=== PATIENT | male | born 1955 | race Caucasian/White ===

== ENCOUNTER → 2017-01-07 | Outpatient (CLI) | payer BC | END | disposition home or self-care (01) | LOC: RAD 08:27 | PROVIDERS: ATTEND Internal Medicine Critical Care Medicine | DX: R05 Cough (principal) | CPT/HCPCS: 71020 ==

== ENCOUNTER → 2018-05-08 | Outpatient (CLI) | payer BC ==
[2018-05-08 08:40] LABS: T4 FREE 0.97 ng/dL (0.76-1.46)
[2018-05-09 09:08] LABS: PROGESTERONE 0.2 ng/mL (0.0-0.5)
[2018-05-12 04:12] LABS: ESTROGENS TOTAL 83 pg/mL (40-115); THYROXINE BINDING GLOBULIN 25 ug/mL (13-39)
== END | disposition home or self-care (01) ==
LOC: LAB 06:17
PROVIDERS: ATTEND Internal Medicine Critical Care Medicine
DX: Z00.01 Encounter for general adult medical examination with abnormal findings (principal); K21.9 Gastro-esophageal reflux disease without esophagitis
CPT/HCPCS: 36415; 80048; 82672; 84144; 84403; 84439; 84442; 84443

== ENCOUNTER → 2018-10-01 | Outpatient (CLI) | payer BC ==
[2018-10-02 10:11] LABS: HIV SCREEN 4G Non Reactive (Non Reactive)
[2018-10-03 04:11] LABS: CHLAMYDIA TRACHOMATIS NAA Negative (Negative); NEISSERIA GONORRHOEAE NAA Negative (Negative)
== END | disposition home or self-care (01) ==
LOC: LAB 06:40
PROVIDERS: ATTEND Internal Medicine Critical Care Medicine
DX: Z11.3 Encounter for screening for infections with a predominantly sexual mode of transmission (principal); Z11.4 Encounter for screening for human immunodeficiency virus [HIV]
CPT/HCPCS: 87389; 87491; 87591

== ENCOUNTER → 2020-12-20 | Outpatient (CLI) | payer BC | END | disposition home or self-care (01) | LOC: MRI 07:28 | PROVIDERS: ATTEND Internal Medicine Critical Care Medicine | DX: S83.242A Other tear of medial meniscus, current injury, left knee, initial encounter (principal); M25.562 Pain in left knee; M17.12 Unilateral primary osteoarthritis, left knee; X58.XXXA Exposure to other specified factors, initial encounter; Y93.89 Activity, other specified; Y92.89 Other specified places as the place of occurrence of the external cause; Y99.8 Other external cause status; M71.22 Synovial cyst of popliteal space [Baker], left knee; M87.9 Osteonecrosis, unspecified; M25.462 Effusion, left knee | CPT/HCPCS: 72195; 73721 ==

== ENCOUNTER → 2021-01-01 | Outpatient (CLI) | payer BC ==
[2021-01-01 08:14] LABS: BASOPHILS % 1.8 % (0.0-2.0); EOSINOPHILS % 3.1 % (0.0-5.0); HEMATOCRIT. 36.1 % (42.0-52.0); LYMPHOCYTES % 24.7 % (20.0-50.0); MEAN CORPUSCULAR HEMOGLOBIN 30.3 pg (28.0-32.0); MEAN CORPUSCULAR VOLUME 91.4 fL (80.0-94.0); MEAN PLATELET VOLUME 7.1 fl (7.4-10.4); MONOCYTES % 7.9 % (2.0-8.0); NEUTROPHILS % 62.5 % (40.0-76.0); PLATELET 323 x1000/uL (130-400); RED BLOOD CELL COUNT 3.95 mill/uL (4.7-6.1); RED CELL DISTRIBUTION WIDTH 13.1 % (11.6-14.6)
[2021-01-01 08:22] LABS: PARTIAL THROMBOPLASTIN TIME 28.9 sec (23.4-31.0); PROTHROMBIN TIME 10.6 sec (9.6-11.0)
== END | disposition home or self-care (01) ==
LOC: LAB 06:03
PROVIDERS: ATTEND Internal Medicine Critical Care Medicine
DX: Z01.812 Encounter for preprocedural laboratory examination (principal); M79.605 Pain in left leg
CPT/HCPCS: 36415; 80048; 85025; 93005

== ENCOUNTER → 2021-01-10 | Outpatient (CLI) | payer BC ==
[~2021-01-10] MED LIST: MULT-1318; NAPR220T66 PO
== END | disposition home or self-care (01) ==
LOC: LAB 10:48
DX: Z01.812 Encounter for preprocedural laboratory examination (principal); Z20.822 Contact with and (suspected) exposure to COVID-19
CPT/HCPCS: 87426

== ENCOUNTER 2021-01-12 05:41 | Inpatient (IN) | payer BC ==
[~2021-01-12] VITALS: Ht 182.9 cm; Wt 89.8 kg
[2021-01-12] MEDS: LACTATED RINGERS 1,000 ML IV SCH ×2 (06:15→18:13)
[2021-01-12 06:22] LABS: CLARITY URINE CLEAR (CLEAR); COLOR URINE YELLOW (YELLOW); KETONES URINE NEGATIVE (NEGATIVE); LEUKOCYTE ESTERASE URINE NEGATIVE (NEGATIVE); NITRITE URINE NEGATIVE (NEGATIVE); OCCULT BLOOD URINE NEGATIVE (NEGATIVE); PROTEIN URINE 1+ (NEGATIVE); SPECIFIC GRAVITY URINE 1.017 (1.005-1.030); UROBILINOGEN URINE 0.2 E.U./dL (0.2-1.0)
[2021-01-12] MEDS ORDERED: MORPHINE SULFATE/PF 1MG/ML 10ML AMP ONE (06:40)
[2021-01-12] MEDS ORDERED: BUPIVACAINE HCL 0.5% (5MG/ML) 50ML ONE (06:41)
[2021-01-12] MEDS ORDERED: KETOROLAC 30MG/ML VIAL ONE (06:41)
[2021-01-12] MEDS ORDERED: EPINEPHRINE 1:1000 1 MG/ML AMP ONE (06:41)
[2021-01-12] MEDS ORDERED: SKIN ADHESIVE 0.7 GM EA TOP ONE (06:42)
[2021-01-12] MEDS ORDERED: POLYMYXIN B SULFATE 500000 UNITS/VIAL ONE (06:42)
[2021-01-12] MEDS ORDERED: VANCOMYCIN HCL 1 GM/VIAL ONE (06:42)
[2021-01-12] MEDS ORDERED: SODIUM CHLORIDE 0.9% 10ML VIAL ONE (06:50)
[2021-01-12] MEDS ORDERED: ROPIVACAINE HCL 10MG/ML 20 ML VIAL EPI ONE ×3 (06:51→10:20)
[2021-01-12] MEDS ORDERED: TRANEXAMIC ACID 1,000 MG in SODIUM CHLORIDE 0.9% 100 ML IV NR ×2 (07:30→09:30)
[2021-01-12] MEDS ORDERED: GLYCOPYRROLATE 0.2 MG/ML 2ML VIAL ONE (07:32)
[2021-01-12] MEDS ORDERED: FENTANYL CITRATE/PF 50MCG/ML 2ML VIAL ONE ×2 (07:32→10:05)
[2021-01-12] MEDS ORDERED: PROPOFOL 200MG/20ML VIAL IV ONE (07:32)
[2021-01-12] MEDS ORDERED: ONDANSETRON HCL 4MG/2ML INJ ONE (07:32)
[2021-01-12] MEDS ORDERED: MIDAZOLAM HCL 2 MG/2 ML VIAL ONE (07:32)
[2021-01-12] MEDS ORDERED: SUCCINYLCHOLINE CHLORIDE 200MG/10ML IV ONE (07:32)
[2021-01-12] MEDS ORDERED: CEFAZOLIN SODIUM 1000MG/VIAL ONE (07:33)
[2021-01-12] MEDS ORDERED: METOCLOPRAMIDE HCL 10MG/2ML VIAL ONE (07:33)
[2021-01-12] MEDS ORDERED: TRANEXAMIC ACID 1,000 MG/10 ML IV NR (08:00)
[2021-01-12] MEDS ORDERED: ONDANSETRON HCL 4MG/2ML INJ IV PRN ×2 (12:45→13:15)
[2021-01-12] MEDS ORDERED: CEFAZOLIN 1000MG PREMIX 50 ML IV SCH (12:45)
[2021-01-12] MEDS ORDERED: HYDROCODONE/ACETAMINOPHEN 10/325MG TABLET PO PRN (12:45)
[2021-01-12] MEDS ORDERED: HYDROCODONE/ACETAMINOPHEN 5/325MG TABLET PO PRN (12:45)
[2021-01-12] MEDS ORDERED: BISACODYL 5MG TABLET PO PRN (13:00)
[2021-01-12] MEDS ORDERED: ONDANSETRON INJ IV PRN (13:15)
[2021-01-12] MEDS ORDERED: HYDROMORPHONE HCL/PF 2MG/ML CPJ IV PRN (13:15)
[2021-01-12] MEDS ORDERED: NALOXONE INJ IV PRN (13:15)
[2021-01-12] MEDS ORDERED: HYDROMORPHONE PCA 10MG/50ML IV PRN (13:15)
[2021-01-12] MEDS ORDERED: DIPHENHYDRAMINE INJ IV PRN (13:15)
[2021-01-12] MEDS: METOCLOPRAMIDE HCL 10MG/2ML VIAL IV SCH ×2 (14:13→22:07)
[2021-01-12 16:39] VITALS: BP 126/80
[2021-01-12 16:53] VITALS: BP 135/88
[2021-01-12 18:00] VITALS: BP 123/91
[2021-01-12] MEDS ORDERED: KETOROLAC 30MG/ML VIAL IV PRN (18:00)
[2021-01-12] MEDS: SENNOSIDES/DOCUSATE SOD 8.6/50MG TABLET PO SCH (18:12)
[2021-01-12] MEDS: CEFAZOLIN 1000MG PREMIX 50 ML IV SCH (18:12)
[2021-01-12 19:37] VITALS: BP 131/95
[2021-01-12 22:00] VITALS: BP 116/71
[2021-01-13] VITALS (10 sets, daily range): BP systolic 109–129; BP diastolic 58–74
[2021-01-13] MEDS: CEFAZOLIN 1000MG PREMIX 50 ML IV SCH ×2 (01:38→09:13)
[2021-01-13] MEDS ORDERED: ASPIRIN 325MG EC TABLET PO SCH (06:00)
[2021-01-13] MEDS: METOCLOPRAMIDE HCL 10MG/2ML VIAL IV SCH ×2 (06:19→14:07)
[2021-01-13 08:30] LABS: BASOPHILS % 0.4 % (0.0-2.0); EOSINOPHILS % 1.1 % (0.0-5.0); HEMATOCRIT. 31.3 % (42.0-52.0); HEMOGLOBIN. 10.3 g/dL (14.0-18.0); LYMPHOCYTES % 9.6 % (20.0-50.0); MEAN CORPUSCULAR HEMOGLOBIN 30.7 pg (28.0-32.0); MEAN CORPUSCULAR VOLUME 92.9 fL (80.0-94.0); MEAN PLATELET VOLUME 8.3 fl (7.4-10.4); MONOCYTES % 11.2 % (2.0-8.0); NEUTROPHILS % 77.7 % (40.0-76.0); PLATELET 244 x1000/uL (130-400); RED BLOOD CELL COUNT 3.37 mill/uL (4.7-6.1); RED CELL DISTRIBUTION WIDTH 12.8 % (11.6-14.6)
[2021-01-13] MEDS: SENNOSIDES/DOCUSATE SOD 8.6/50MG TABLET PO SCH (09:13)
[2021-01-13] MEDS ORDERED: HYDROCODONE/ACETAMINOPHEN 10/325MG TABLET PO PRN (11:00)
[2021-01-13] MEDS ORDERED: CEFAZOLIN 1000MG PREMIX 50 ML IV SCH (17:00)
== END 2021-01-13 15:10 | disposition home or self-care (01) | DRG 470 ==
LOC: OR 05:41 → 3WST 05:42
PROC: 0SRB01A Replacement of Left Hip Joint with Metal Synthetic Substitute, Uncemented, Open Approach (ICD-10-PCS; principal; 2021-01-12)
PROC: 3E0T3BZ Introduction of Anesthetic Agent into Peripheral Nerves and Plexi, Percutaneous Approach (ICD-10-PCS; 2021-01-12)
DX: M87.852 Other osteonecrosis, left femur (principal); M16.12 Unilateral primary osteoarthritis, left hip; K21.9 Gastro-esophageal reflux disease without esophagitis; M25.452 Effusion, left hip; I12.9 Hypertensive chronic kidney disease with stage 1 through stage 4 chronic kidney disease, or unspecified chronic kidney disease; N18.9 Chronic kidney disease, unspecified; S83.207A Unspecified tear of unspecified meniscus, current injury, left knee, initial encounter; G89.29 Other chronic pain; X58.XXXA Exposure to other specified factors, initial encounter; Z88.8 Allergy status to other drugs, medicaments and biological substances; Y93.89 Activity, other specified; Y92.89 Other specified places as the place of occurrence of the external cause; Y99.8 Other external cause status
CPT/HCPCS: 36415; 73501; 76000; 80048; 81003; 85025; 86850; 86900; 88305; 88311; 97116; 97163; 97166; C1776; J0330; J0690; J1170; J1885; J2250; J2274; J2405; J2704; J2765; J2795; J3010; J3370; J3490; J7050

== ENCOUNTER → 2022-08-12 | Outpatient (CLI) | payer BC ==
[2022-08-12 12:06] LABS: BASOPHILS % 1.5 % (0.0-2.0); EOSINOPHILS % 2.8 % (0.0-5.0); HEMATOCRIT. 36.8 % (42.0-52.0); HEMOGLOBIN. 12.3 g/dL (14.0-18.0); LYMPHOCYTES % 29.2 % (20.0-50.0); MEAN PLATELET VOLUME 7.4 fl (7.4-10.4); NEUTROPHILS % 56.5 % (40.0-76.0); PLATELET 312 x1000/uL (130-400); RED BLOOD CELL COUNT 4.09 mill/uL (4.7-6.1); RED CELL DISTRIBUTION WIDTH 14.5 % (11.6-14.6)
[2022-08-12 13:04] LABS: CHLORIDE 110 mEq/L (98-107)
[2022-08-12 13:53] LABS: HDL CHOLESTEROL 54 mg/dL (40-59); LDL CHOLESTEROL 148 mg/dL (5-100); T4 FREE 0.97 ng/dL (0.76-1.46)
== END | disposition home or self-care (01) ==
LOC: LAB 11:35
PROVIDERS: ATTEND Internal Medicine Critical Care Medicine
DX: R10.9 Unspecified abdominal pain (principal)
CPT/HCPCS: 36415; 80053; 80061; 83036; 84153; 84439; 84443; 84481; 85025; G0103

== ENCOUNTER → 2022-08-14 | Outpatient (CLI) | payer BC | END | disposition home or self-care (01) | LOC: US 05:49 | PROVIDERS: ATTEND Internal Medicine Critical Care Medicine | DX: R10.11 Right upper quadrant pain (principal) | CPT/HCPCS: 76705 ==

== ENCOUNTER → 2023-03-04 | Outpatient (CLI) | payer BC ==
[2023-03-04 06:59] LABS: CHLORIDE 112 mEq/L (98-107)
[2023-03-04 07:10] LABS: BASOPHILS % 2.6 % (0.0-2.0); EOSINOPHILS % 6.6 % (0.0-5.0); HEMATOCRIT. 35.6 % (42.0-52.0); HEMOGLOBIN. 12.4 g/dL (14.0-18.0); LYMPHOCYTES % 25.7 % (20.0-50.0); MEAN CORPUSCULAR HEMOGLOBIN 30.6 pg (28.0-32.0); MEAN CORPUSCULAR VOLUME 88.2 fL (80.0-94.0); MEAN PLATELET VOLUME 8.1 fl (7.4-10.4); MONOCYTES % 9.7 % (2.0-8.0); NEUTROPHILS % 55.4 % (40.0-76.0); PLATELET 310 x1000/uL (130-400); RED BLOOD CELL COUNT 4.04 mill/uL (4.7-6.1); RED CELL DISTRIBUTION WIDTH 13.5 % (11.6-14.6)
== END | disposition home or self-care (01) ==
LOC: LAB 05:54
PROVIDERS: ATTEND Internal Medicine Critical Care Medicine
DX: E88.81 Metabolic syndrome and other insulin resistance (principal); D50.9 Iron deficiency anemia, unspecified; R97.20 Elevated prostate specific antigen [PSA]
CPT/HCPCS: 36415; 80053; 84153; 85025; G0103

== ENCOUNTER 2023-08-02 18:40 | Inpatient (IN) | payer BC ==
[~2023-08-02] VITALS: Ht 180.3 cm; Wt 86.2 kg
[2023-08-02] VITALS (8 sets, daily range): BP systolic 88–101; BP diastolic 58–69; PULSE 112–117; RESP 12–18; TEMP 97.8
[2023-08-02] MEDS ORDERED: SODIUM CHLORIDE 0.9% 1,000 ML IV ONE (19:00)
[2023-08-02] MEDS ORDERED: PANTOPRAZOLE SODIUM 40 MG/VIAL IV ONE (19:00)
[2023-08-02 19:36] LABS: CHLORIDE 115 mEq/L (98-107); INDEX HEMOLYSI 1 (1-3); INDEX ICTERIC 1 (1-4); INDEX LIPEMIC 1 (1-3); INR 0.9; POTASSIUM 3.6 mEq/L (3.5-5.1); PROTHROMBIN TIME 10.2 sec (9.6-11.0); SODIUM 143 mEq/L (136-145)
[2023-08-02 19:38] LABS: ALBUMIN 2.4 g/dL (3.4-5.0); CALCIUM 7.9 mg/dL (8.5-10.1)
[2023-08-02 19:45] LABS: MEAN CORPUSCULAR HEMOGLOBIN 29.8 pg (28.0-32.0); MEAN CORPUSCULAR HGB CONC 32.3 g/dL (31.0-37.0); MEAN CORPUSCULAR VOLUME 92.2 fL (80.0-94.0); MEAN PLATELET VOLUME 8.1 fl (7.4-10.4); PLATELET 241 x1000/uL (130-400); RED BLOOD CELL COUNT 2.17 mill/uL (4.7-6.1); RED CELL DISTRIBUTION WIDTH 14.4 % (11.6-14.6); WHITE BLOOD COUNT 14.4 x1000/uL (4.5-11.0)
[2023-08-02 19:46] LABS: ALANINE AMINOTRANSFERASE 16 IU/L (13-61); ASPARTATE AMINOTRANSFERASE 15 IU/L (15-37); BILIRUBIN TOTAL 0.7 mg/dL (0.1-1.0); CARBON DIOXIDE 22 mEq/L (21-32); CREATININE 1.9 mg/dL (0.6-1.3); GLUCOSE 134 mg/dL (70-105); PROTEIN TOTAL 5.1 g/dL (6.0-8.3); UREA NITROGEN BLOOD 43 mg/dL (7-21)
[2023-08-02 20:00] LABS: DIFFERENTIAL COMMENT 1; HEMOGLOBIN. 6.5 g/dL (14.0-18.0)
[2023-08-02 20:15] LABS: PLATELET ESTIMATE NORMAL
[2023-08-02] MEDS ORDERED: KCL 20MEQ/100ML PREMIX 100 ML IV NR (23:00)
[2023-08-02] MEDS: ONDANSETRON HCL 4MG/2ML INJ IV PRN (23:39)
[2023-08-02] MEDS: SODIUM CHLORIDE 0.9% 1,000 ML IV SCH (23:40)
[2023-08-03] VITALS (86 sets, daily range): BP systolic 72–128; BP diastolic 42–89; PULSE 92–128; RESP 0–23; TEMP 97.8–98.6
[2023-08-03 00:04] LABS: HEMATOCRIT. 21.1 % (42.0-52.0); MEAN CORPUSCULAR HEMOGLOBIN 29.7 pg (28.0-32.0); MEAN CORPUSCULAR HGB CONC 32.8 g/dL (31.0-37.0); MEAN CORPUSCULAR VOLUME 90.5 fL (80.0-94.0); MEAN PLATELET VOLUME 7.9 fl (7.4-10.4); PLATELET 184 x1000/uL (130-400); RED BLOOD CELL COUNT 2.34 mill/uL (4.7-6.1); RED CELL DISTRIBUTION WIDTH 14.9 % (11.6-14.6); WHITE BLOOD COUNT 13.5 x1000/uL (4.5-11.0)
[2023-08-03 00:11] LABS: DIFFERENTIAL COMMENT 1; HEMOGLOBIN. 6.9 g/dL (14.0-18.0)
[2023-08-03] MEDS: PANTOPRAZOLE 80 MG in SODIUM CHLORIDE 0.9% 100 ML IV SCH ×3 (01:35→21:56)
[2023-08-03 05:28] LABS: HEMATOCRIT. 23.2 % (42.0-52.0); HEMOGLOBIN. 7.7 g/dL (14.0-18.0); MEAN CORPUSCULAR HEMOGLOBIN 29.6 pg (28.0-32.0); MEAN CORPUSCULAR HGB CONC 32.9 g/dL (31.0-37.0); MEAN CORPUSCULAR VOLUME 89.7 fL (80.0-94.0); PLATELET 157 x1000/uL (130-400); RED BLOOD CELL COUNT 2.59 mill/uL (4.7-6.1); RED CELL DISTRIBUTION WIDTH 14.9 % (11.6-14.6); WHITE BLOOD COUNT 13.3 x1000/uL (4.5-11.0)
[2023-08-03 05:43] LABS: PLATELET ESTIMATE NORMAL
[2023-08-03 06:06] LABS: CHLORIDE 122 mEq/L (98-107); INDEX HEMOLYSI 1 (1-3); INDEX ICTERIC 1 (1-4); INDEX LIPEMIC 1 (1-3); POTASSIUM 4.4 mEq/L (3.5-5.1); SODIUM 146 mEq/L (136-145)
[2023-08-03] MEDS: ONDANSETRON HCL 4MG/2ML INJ IV PRN ×3 (06:13→17:57)
[2023-08-03 06:17] LABS: DIFFERENTIAL COMMENT 1
[2023-08-03 06:19] LABS: ALANINE AMINOTRANSFERASE 10 IU/L (13-61); ALBUMIN 1.7 g/dL (3.4-5.0); ASPARTATE AMINOTRANSFERASE 10 IU/L (15-37); BILIRUBIN TOTAL 0.2 mg/dL (0.1-1.0); CALCIUM 7.1 mg/dL (8.5-10.1); CARBON DIOXIDE 20 mEq/L (21-32); CHOLESTEROL 90 mg/dL (<200); CREATININE 1.8 mg/dL (0.6-1.3); GLUCOSE 104 mg/dL (70-105); HDL CHOLESTEROL 17 mg/dL (40-59); LDL CHOLESTEROL 39 mg/dL (5-100); PROTEIN TOTAL 3.8 g/dL (6.0-8.3); TRIGLYCERIDE 413 mg/dL (0-150); UREA NITROGEN BLOOD 51 mg/dL (7-21)
[2023-08-03 06:34] LABS: CLARITY URINE CLOUDY (CLEAR); COLOR URINE YELLOW (YELLOW); GLUCOSE URINE NEGATIVE (NEGATIVE); KETONES URINE NEGATIVE (NEGATIVE); LEUKOCYTE ESTERASE URINE NEGATIVE (NEGATIVE); NITRITE URINE NEGATIVE (NEGATIVE); OCCULT BLOOD URINE NEGATIVE (NEGATIVE); PH URINE 5.5 (4.5-8.0); PROTEIN URINE NEGATIVE (NEGATIVE); SPECIFIC GRAVITY URINE 1.013 (1.005-1.030); UROBILINOGEN URINE 0.2 E.U./dL (0.2-1.0)
[2023-08-03 07:30] LABS: RBC URINE NONE SEEN /hpf (0-2)
[2023-08-03 07:31] LABS: WBC URINE 0-2 /hpf (0-2)
[2023-08-03 07:32] LABS: SQUAMOUS EPITHELIAL CELL URINE RARE /lpf (RARE/1+)
[2023-08-03 07:36] LABS: BACTERIA URINE TRACE
[2023-08-03] MEDS ORDERED: LACTATED RINGERS 1,000 ML IV SCH ×4 (08:15→14:15)
[2023-08-03] MEDS: PHENYLEPHRINE 100 MG in DEXT 5% WATER 240 ML IV PRN (09:31)
[2023-08-03] MEDS ORDERED: PIPERACILLIN/TAZOBACTAM 3.375 G in DEXTROSE 5% WATER 50 ML IV NR (10:00)
[2023-08-03] MEDS: SODIUM CHLORIDE 0.9% 1,000 ML IV SCH ×2 (10:44→22:56)
[2023-08-03 11:10] LABS: PLATELET ESTIMATE NORMAL
[2023-08-03 11:11] LABS: ANISOCYTOSIS 1+
[2023-08-03] MEDS ORDERED: IPRATROPIUM/ALBUTEROL 0.5-3(2.5)MG/3ML NEB HHN PRN (11:45)
[2023-08-03] MEDS: TRAMADOL 50MG TABLET PO PRN ×3 (12:38→21:56)
[2023-08-03] MEDS ORDERED: NALOXONE HCL 0.4MG/ML VIAL IV PRN (12:45)
[2023-08-03 13:22] LABS: MEAN CORPUSCULAR HEMOGLOBIN 28.9 pg (28.0-32.0); MEAN CORPUSCULAR HGB CONC 32.1 g/dL (31.0-37.0); MEAN PLATELET VOLUME 8.7 fl (7.4-10.4); PLATELET 122 x1000/uL (130-400); RED BLOOD CELL COUNT 2.11 mill/uL (4.7-6.1); RED CELL DISTRIBUTION WIDTH 14.7 % (11.6-14.6); WHITE BLOOD COUNT 15.8 x1000/uL (4.5-11.0)
[2023-08-03 13:30] LABS: INDEX HEMOLYSI 1 (1-3); INDEX ICTERIC 1 (1-4); INDEX LIPEMIC 1 (1-3)
[2023-08-03 13:34] LABS: IRON 81 ug/dL (50-175); TOTAL IRON BINDING CAPACITY 173 ug/dL (250-450)
[2023-08-03 13:34] LABS: DIFFERENTIAL COMMENT 1; HEMOGLOBIN. 6.1 g/dL (14.0-18.0)
[2023-08-03] MEDS ORDERED: CALCIUM CHLORIDE 1,000 MG in DEXT 5% WATER 90 ML IV NR (14:00)
[2023-08-03 14:02] LABS: VITAMIN B12 SERUM 208 pg/mL (211-911)
[2023-08-03 14:04] LABS: NUCLEATED RED BLOOD CELLS 2 /100 WBC; PLATELET ESTIMATE SLIGHTLY DECREASED
[2023-08-03 14:21] LABS: FERRITIN 42 ng/mL (22-322)
[2023-08-03] MEDS: PIPERACILLIN/TAZOBACTAM 3.375 G in DEXTROSE 5% WATER 50 ML IV SCH ×2 (15:48→21:56)
[2023-08-03] MEDS ORDERED: LIDOCAINE 2% 6ML GLYDO MM NR (16:00)
[2023-08-03] MEDS: METOCLOPRAMIDE HCL 10MG/2ML VIAL IV SCH (17:57)
[2023-08-03 18:30] LABS: MEAN CORPUSCULAR HEMOGLOBIN 30.2 pg (28.0-32.0); MEAN CORPUSCULAR VOLUME 91.7 fL (80.0-94.0); PLATELET 113 x1000/uL (130-400); RED CELL DISTRIBUTION WIDTH 14.6 % (11.6-14.6); WHITE BLOOD COUNT 19.1 x1000/uL (4.5-11.0)
[2023-08-03 18:37] LABS: DIFFERENTIAL COMMENT 1
[2023-08-03 18:39] LABS: HEMATOCRIT. 21.1 % (42.0-52.0)
[2023-08-04] VITALS (106 sets, daily range): BP systolic 62–150; BP diastolic 14–127; PULSE 94–139; RESP 0–33; TEMP 94–98.4
[2023-08-04 00:13] LABS: HEMATOCRIT. 26.2 % (42.0-52.0); HEMOGLOBIN. 8.8 g/dL (14.0-18.0); MEAN CORPUSCULAR HEMOGLOBIN 30.5 pg (28.0-32.0); MEAN CORPUSCULAR HGB CONC 33.7 g/dL (31.0-37.0); MEAN CORPUSCULAR VOLUME 90.4 fL (80.0-94.0); PLATELET 94 x1000/uL (130-400); RED CELL DISTRIBUTION WIDTH 13.9 % (11.6-14.6); WHITE BLOOD COUNT 17.5 x1000/uL (4.5-11.0)
[2023-08-04] MEDS: METOCLOPRAMIDE HCL 10MG/2ML VIAL IV SCH ×4 (00:18→18:23)
[2023-08-04 00:24] LABS: DIFFERENTIAL COMMENT 1
[2023-08-04] MEDS ORDERED: OXYCODONE HCL/ACETAMINOPHEN 5/325MG TABLET PO NR (02:00)
[2023-08-04] MEDS: ONDANSETRON HCL 4MG/2ML INJ IV PRN (02:18)
[2023-08-04] MEDS: PHENYLEPHRINE 100 MG in DEXT 5% WATER 240 ML IV PRN ×2 (03:33→17:55)
[2023-08-04] MEDS: PIPERACILLIN/TAZOBACTAM 3.375 G in DEXTROSE 5% WATER 50 ML IV SCH ×3 (05:32→21:34)
[2023-08-04] MEDS: TRAMADOL 50MG TABLET PO PRN (05:32)
[2023-08-04] MEDS: PANTOPRAZOLE 80 MG in SODIUM CHLORIDE 0.9% 100 ML IV SCH ×2 (05:59→16:20)
[2023-08-04 06:25] LABS: BASOPHILS % 0.1 % (0.0-2.0); HEMATOCRIT. 22.6 % (42.0-52.0); HEMOGLOBIN. 7.4 g/dL (14.0-18.0); LYMPHOCYTES % 11.2 % (20.0-50.0); MEAN CORPUSCULAR HEMOGLOBIN 29.7 pg (28.0-32.0); MEAN CORPUSCULAR HGB CONC 32.6 g/dL (31.0-37.0); MEAN CORPUSCULAR VOLUME 91.3 fL (80.0-94.0); MONOCYTES % 8.8 % (2.0-8.0); NEUTROPHILS % 79.9 % (40.0-76.0); PLATELET 109 x1000/uL (130-400); RED BLOOD CELL COUNT 2.47 mill/uL (4.7-6.1); RED CELL DISTRIBUTION WIDTH 14.1 % (11.6-14.6); WHITE BLOOD COUNT 23.4 x1000/uL (4.5-11.0)
[2023-08-04 07:58] LABS: BG BASE EXCESS -21.4 mmol/L (-2.0-2.0); BG CARBOXYHEMOGLOBIN 0.3 % (0.5-1.5); BG DEOXYHEMOGLOBIN 2.3 % (0.0-5.0); BG FRACTION INSPIRED OXYGEN 36; BG HCO3 ACT 5.5 mmol/L (22.0-26.0); BG METHEMOGLOBIN 0.8 % (0.0-1.5); BG OXYGEN SATURATION 97.7 % (92.0-98.5); BG OXYHEMOGLOBIN 96.6 % (94.0-97.0); BG PCO2 16.2 mmHg (35.0-45.0); BG PH 7.149 (7.350-7.450); BG PO2 163.2 mmHg (75.0-100.0); BG SAMPLE SITE ALINE; BG TOTAL HEMOGLOBIN 6.6 g/dL (12.0-18.0); BG VENT MODE NASAL CANNULA
[2023-08-04] MEDS ORDERED: KETAMINE HCL 50 MG/ML 10ML IV PRN (08:00)
[2023-08-04] MEDS ORDERED: DEXTROSE 50% WATER 50ML SYRINGE IV NR ×2 (08:30→18:45)
[2023-08-04] MEDS ORDERED: INSULIN REGULAR (HUMULIN R) 300UNITS/3ML VIAL IV NR ×2 (08:30→18:45)
[2023-08-04] MEDS ORDERED: SODIUM BICARBONATE 8.4% 1 MEQ/ML 50ML SYR IV NR ×2 (08:30→19:07)
[2023-08-04] MEDS ORDERED: LACTATED RINGERS 1,000 ML IV SCH (08:30)
[2023-08-04] MEDS ORDERED: MIDAZOLAM 100MG/100ML PMX 100 ML IV PRN (08:45)
[2023-08-04] MEDS ORDERED: FENTANYL 2500MCG/250ML PMX 250 ML IV ONE (08:45)
[2023-08-04] MEDS ORDERED: CALCIUM CHLORIDE 1GM/10ML SYR IV NR (09:00)
[2023-08-04 09:24] LABS: NUCLEATED RED BLOOD CELLS 1 /100 WBC; PLATELET ESTIMATE DECREASED
[2023-08-04] MEDS ORDERED: CALCIUM CHLORIDE 1,000 MG in DEXT 5% WATER 90 ML IV NR ×2 (10:00→20:30)
[2023-08-04 10:10] LABS: BG BASE EXCESS -9.6 mmol/L (-2.0-2.0); BG CARBOXYHEMOGLOBIN 0.3 % (0.5-1.5); BG DEOXYHEMOGLOBIN 1.1 % (0.0-5.0); BG FRACTION INSPIRED OXYGEN 100; BG HCO3 ACT 15.2 mmol/L (22.0-26.0); BG METHEMOGLOBIN 0.4 % (0.0-1.5); BG OXYGEN SATURATION 98.9 % (92.0-98.5); BG OXYHEMOGLOBIN 98.2 % (94.0-97.0); BG PCO2 28.8 mmHg (35.0-45.0); BG PH 7.341 (7.350-7.450); BG PO2 472.2 mmHg (75.0-100.0); BG SAMPLE SITE ALINE; BG TOTAL HEMOGLOBIN 7.3 g/dL (12.0-18.0); BG VENT MODE VENT - AC
[2023-08-04] MEDS: MIDAZOLAM HCL 100 MG in SODIUM CHLORIDE 0.9% 100 ML IV PRN (10:35)
[2023-08-04] MEDS: SODIUM CHLORIDE 0.9% 1,000 ML IV SCH (10:36)
[2023-08-04] MEDS: FENTANYL CITRATE 2,500 MCG in SODIUM CHLORIDE 0.9% 200 ML IV PRN (10:36)
[2023-08-04] MEDS ORDERED: ROCURONIUM BROMIDE 10MG/ML VIAL 5ML IV ONE ×3 (11:12→15:34)
[2023-08-04] MEDS ORDERED: EPINEPHRINE 0.1MG/ML (1:10,000) 10ML SYR ONE (11:12)
[2023-08-04 11:32] LABS: PLATELET ESTIMATE SLIGHTLY DECREASED
[2023-08-04 11:51] LABS: INR 1.5; PROTHROMBIN TIME 15.9 sec (9.6-11.0)
[2023-08-04 11:53] LABS: MEAN CORPUSCULAR HEMOGLOBIN 29.9 pg (28.0-32.0); MEAN CORPUSCULAR HGB CONC 31.8 g/dL (31.0-37.0); MEAN PLATELET VOLUME 9.5 fl (7.4-10.4); PLATELET 69 x1000/uL (130-400); RED BLOOD CELL COUNT 1.81 mill/uL (4.7-6.1); RED CELL DISTRIBUTION WIDTH 15.3 % (11.6-14.6); WHITE BLOOD COUNT 19.7 x1000/uL (4.5-11.0)
[2023-08-04 11:55] LABS: DIFFERENTIAL COMMENT 1
[2023-08-04 11:57] LABS: HEMOGLOBIN. 5.4 g/dL (14.0-18.0)
[2023-08-04] MEDS ORDERED: SODIUM CHLORIDE 0.9% 1,000 ML IV SCH (12:30)
[2023-08-04] MEDS: DEXT 5%/0.45% NACL 1000ML 1,000 ML IV SCH (12:46)
[2023-08-04] MEDS ORDERED: LIDOCAINE HCL 1% 10 MG/ML 10ML VIAL ONE (12:53)
[2023-08-04] MEDS ORDERED: IOHEXOL-300 100 ML BOTTLE ONE ×3 (12:54→14:32)
[2023-08-04] MEDS ORDERED: PHENYLEPHRINE HCL 10 MG/ML 1ML (IV VIAL) IV ONE (13:16)
[2023-08-04] MEDS ORDERED: MIDAZOLAM HCL 2 MG/2 ML VIAL ONE (13:32)
[2023-08-04 13:51] LABS: NUCLEATED RED BLOOD CELLS 4 /100 WBC; PLATELET ESTIMATE DECREASED
[2023-08-04] MEDS ORDERED: IOHEXOL-300 50 ML BOTTLE IV ONE (15:19)
[2023-08-04] MEDS ORDERED: SODIUM CHLORIDE 0.9% 1,000 ML IV ONE (17:15)
[2023-08-04 18:22] LABS: POTASSIUM 5.4 mEq/L (3.5-5.1)
[2023-08-04 18:23] LABS: CALCIUM 6.1 mg/dL (8.5-10.1)
[2023-08-04 18:28] LABS: CREATININE 3.6 mg/dL (0.6-1.3)
[2023-08-04] MEDS: CYANOCOBALAMIN 1000MCG/ML VIAL IM SCH (21:34)
[2023-08-05] VITALS (122 sets, daily range): BP systolic 68–149; BP diastolic 6–91; PULSE 69–117; RESP 0–30; TEMP 97.7–98.4
[2023-08-05] MEDS: METOCLOPRAMIDE HCL 10MG/2ML VIAL IV SCH ×4 (00:57→17:40)
[2023-08-05] MEDS: DEXT 5%/0.45% NACL 1000ML 1,000 ML IV SCH (00:57)
[2023-08-05 01:13] LABS: HEMATOCRIT 39.3 % (42.0-52.0); HEMOGLOBIN 12.1 g/dL (14.0-18.0)
[2023-08-05] MEDS ORDERED: SODIUM BICARBONATE 8.4% 1 MEQ/ML 50ML SYR IV NR (03:30)
[2023-08-05] MEDS: PHENYLEPHRINE 100 MG in DEXT 5% WATER 240 ML IV PRN ×2 (03:48→19:25)
[2023-08-05] MEDS: PANTOPRAZOLE 80 MG in SODIUM CHLORIDE 0.9% 100 ML IV SCH ×3 (03:48→22:17)
[2023-08-05 05:21] LABS: BASOPHILS % 0.1 % (0.0-2.0); HEMATOCRIT. 26.6 % (42.0-52.0); HEMOGLOBIN. 8.7 g/dL (14.0-18.0); LYMPHOCYTES % 8.8 % (20.0-50.0); MEAN CORPUSCULAR HEMOGLOBIN 29.6 pg (28.0-32.0); MEAN CORPUSCULAR HGB CONC 32.5 g/dL (31.0-37.0); MEAN CORPUSCULAR VOLUME 91.1 fL (80.0-94.0); MEAN PLATELET VOLUME 9.6 fl (7.4-10.4); MONOCYTES % 9.8 % (2.0-8.0); NEUTROPHILS % 81.3 % (40.0-76.0); PLATELET 63 x1000/uL (130-400); RED BLOOD CELL COUNT 2.92 mill/uL (4.7-6.1); RED CELL DISTRIBUTION WIDTH 14.8 % (11.6-14.6); WHITE BLOOD COUNT 24.7 x1000/uL (4.5-11.0)
[2023-08-05 05:33] LABS: CHLORIDE 122 mEq/L (98-107); INDEX HEMOLYSI 1 (1-3); INDEX ICTERIC 1 (1-4); INDEX LIPEMIC 1 (1-3); POTASSIUM 4.9 mEq/L (3.5-5.1); SODIUM 150 mEq/L (136-145)
[2023-08-05] MEDS: PIPERACILLIN/TAZOBACTAM 3.375 G in DEXTROSE 5% WATER 50 ML IV SCH ×3 (05:44→22:17)
[2023-08-05 05:51] LABS: ALANINE AMINOTRANSFERASE 135 IU/L (13-61); ALBUMIN 1.3 g/dL (3.4-5.0); ASPARTATE AMINOTRANSFERASE 173 IU/L (15-37); BILIRUBIN TOTAL 0.4 mg/dL (0.1-1.0); CALCIUM 6.8 mg/dL (8.5-10.1); CARBON DIOXIDE 20 mEq/L (21-32); CREATININE 4.6 mg/dL (0.6-1.3); GLUCOSE 114 mg/dL (70-105); PHOSPHORUS 5.1 mg/dL (2.5-4.9); UREA NITROGEN BLOOD 77 mg/dL (7-21)
[2023-08-05 06:22] LABS: DIFFERENTIAL COMMENT 1
[2023-08-05 07:13] LABS: BG BASE EXCESS -6.2 mmol/L (-2.0-2.0); BG CARBOXYHEMOGLOBIN 0.2 % (0.5-1.5); BG DEOXYHEMOGLOBIN 1.6 % (0.0-5.0); BG HCO3 ACT 18.4 mmol/L (22.0-26.0); BG METHEMOGLOBIN 0.3 % (0.0-1.5); BG OXYGEN SATURATION 98.4 % (92.0-98.5); BG OXYHEMOGLOBIN 97.9 % (94.0-97.0); BG PCO2 32.8 mmHg (35.0-45.0); BG PH 7.367 (7.350-7.450); BG PO2 199.7 mmHg (75.0-100.0); BG SAMPLE SITE ALINE; BG TOTAL HEMOGLOBIN 9.4 g/dL (12.0-18.0); BG VENT MODE VENT - AC
[2023-08-05] MEDS ORDERED: LIDOCAINE HCL 1% 10 MG/ML 10ML VIAL ONE (09:00)
[2023-08-05] MEDS: MIDAZOLAM HCL 100 MG in SODIUM CHLORIDE 0.9% 100 ML IV PRN ×2 (09:37→22:17)
[2023-08-05] MEDS ORDERED: HEPARIN 1000 UNITS/ML 10ML ONE (09:53)
[2023-08-05] MEDS ORDERED: MAGNESIUM 2 G PREMIX 50 ML IV NR (10:00)
[2023-08-05 11:57] LABS: HEMOGLOBIN 8.8 g/dL (14.0-18.0)
[2023-08-05 12:06] LABS: INR 1.1; PROTHROMBIN TIME 11.8 sec (9.6-11.0)
[2023-08-05] MEDS ORDERED: DESMOPRESSIN ACETATE 4MCG/ML AMP IV ONE (13:15)
[2023-08-05] MEDS ORDERED: DESMOPRESSIN ACETATE IVPB 20 MCG in SODIUM CHLORIDE 0.9% 50 ML IV SCH (15:00)
[2023-08-05 15:32] LABS: *AMPHETAMINES SCREEN URINE Neg (NEGATIVE); *BARBITURATES SCREEN URINE Neg (NEGATIVE); *BENZODIAZEPINES SCREEN URINE Pos (NEGATIVE); *COCAINE SCREEN URINE Neg (NEGATIVE); CANNABINOID URINE SCREEN Neg (NEGATIVE); ECSTASY MDMA SCREEN URINE Neg (NEGATIVE); METHADONE URINE SCREEN Neg (NEGATIVE); OPIATES URINE SCREEN Neg (NEGATIVE); PHENCYCLIDINE URINE SCREEN Neg (NEGATIVE)
[2023-08-05] MEDS: VASOPRESSIN 20 UNIT in SODIUM CHLORIDE 0.9% 99 ML IV PRN (17:08)
[2023-08-05 18:25] LABS: HEMATOCRIT 28.9 % (42.0-52.0); HEMOGLOBIN 9.5 g/dL (14.0-18.0)
[2023-08-05] MEDS: FENTANYL CITRATE 2,500 MCG in SODIUM CHLORIDE 0.9% 200 ML IV PRN (19:27)
[2023-08-05] MEDS ORDERED: DEXTROSE 10% WATER 500 ML IV SCH (20:30)
[2023-08-05] MEDS: DEXT 10% WATER 1,000 ML IV SCH (20:55)
[2023-08-05] MEDS ORDERED: PANTOPRAZOLE SODIUM 40 MG/VIAL IV SCH (21:00)
[2023-08-05] MEDS: CYANOCOBALAMIN 1000MCG/ML VIAL IM SCH (21:18)
[2023-08-06] VITALS (115 sets, daily range): BP systolic 82–128; BP diastolic 41–75; PULSE 63–107; RESP 0–24; TEMP 97.1–98.5
[2023-08-06] MEDS: BLOOD SUGAR DIAGNOSTIC STRIP TEST SCH ×6 (00:10→19:54)
[2023-08-06 00:19] LABS: HEMATOCRIT 23.7 % (42.0-52.0); HEMOGLOBIN 7.9 g/dL (14.0-18.0)
[2023-08-06] MEDS: METOCLOPRAMIDE HCL 10MG/2ML VIAL IV SCH ×4 (00:24→17:57)
[2023-08-06] MEDS: PIPERACILLIN/TAZOBACTAM 3.375 G in DEXTROSE 5% WATER 50 ML IV SCH (05:16)
[2023-08-06 05:18] LABS: BASOPHILS % 0.1 % (0.0-2.0); EOSINOPHILS % 0.4 % (0.0-5.0); HEMATOCRIT. 25.7 % (42.0-52.0); HEMOGLOBIN. 8.7 g/dL (14.0-18.0); LYMPHOCYTES % 11.8 % (20.0-50.0); MEAN CORPUSCULAR HEMOGLOBIN 29.9 pg (28.0-32.0); MEAN CORPUSCULAR HGB CONC 33.9 g/dL (31.0-37.0); MEAN CORPUSCULAR VOLUME 88.2 fL (80.0-94.0); MEAN PLATELET VOLUME 8.8 fl (7.4-10.4); NEUTROPHILS % 80.7 % (40.0-76.0); RED BLOOD CELL COUNT 2.91 mill/uL (4.7-6.1); WHITE BLOOD COUNT 16.7 x1000/uL (4.5-11.0)
[2023-08-06 05:36] LABS: ALANINE AMINOTRANSFERASE 142 IU/L (10-49); ASPARTATE AMINOTRANSFERASE 163 IU/L (<34); BILIRUBIN DIRECT 0.1 mg/dL (<=3.0); BILIRUBIN TOTAL 0.3 mg/dL (0.1-1.0); CALCIUM 6.6 mg/dL (8.7-10.4); CARBON DIOXIDE 24 mEq/L (21-32); CHLORIDE 113 mEq/L (98-107); CREATININE 3.5 mg/dL (0.6-1.3); GLUCOSE 78 mg/dL (70-105); POTASSIUM 4.1 mEq/L (3.5-5.1); PROTEIN TOTAL 3.2 g/dL (6.0-8.3); SODIUM 148 mEq/L (136-145); UREA NITROGEN BLOOD 50 mg/dL (9-23)
[2023-08-06 05:56] LABS: DIFFERENTIAL COMMENT 1
[2023-08-06 05:58] LABS: PLATELET 37 x1000/uL (130-400)
[2023-08-06] MEDS ORDERED: MAGNESIUM 4 G PREMIX 100 ML IV ONE (06:30)
[2023-08-06] MEDS ORDERED: MAGNESIUM SULFATE 3 GM in DEXTROSE 5% WATER 100 ML IV NR (08:00)
[2023-08-06] MEDS: PANTOPRAZOLE 80 MG in SODIUM CHLORIDE 0.9% 100 ML IV SCH ×2 (08:34→17:51)
[2023-08-06 08:52] LABS: BG BASE EXCESS 0.4 mmol/L (-2.0-2.0); BG CARBOXYHEMOGLOBIN 0.2 % (0.5-1.5); BG DEOXYHEMOGLOBIN 1.7 % (0.0-5.0); BG FRACTION INSPIRED OXYGEN 40; BG HCO3 ACT 22.7 mmol/L (22.0-26.0); BG METHEMOGLOBIN 0.3 % (0.0-1.5); BG OXYGEN SATURATION 98.3 % (92.0-98.5); BG OXYHEMOGLOBIN 97.8 % (94.0-97.0); BG PCO2 28.2 mmHg (35.0-45.0); BG PH 7.523 (7.350-7.450); BG PO2 129.8 mmHg (75.0-100.0); BG SAMPLE SITE ALINE; BG TOTAL HEMOGLOBIN 9.5 g/dL (12.0-18.0); BG VENT MODE VENT - AC
[2023-08-06] MEDS ORDERED: ACETYLCYSTEINE 200MG/ML 20% VIAL 4ML INH NR (09:45)
[2023-08-06] MEDS: VASOPRESSIN 20 UNIT in SODIUM CHLORIDE 0.9% 99 ML IV PRN (11:01)
[2023-08-06 11:25] LABS: BG CARBOXYHEMOGLOBIN 0.3 % (0.5-1.5); BG DEOXYHEMOGLOBIN 2.6 % (0.0-5.0); BG FRACTION INSPIRED OXYGEN 40; BG HCO3 ACT 21.6 mmol/L (22.0-26.0); BG METHEMOGLOBIN 0.3 % (0.0-1.5); BG OXYGEN SATURATION 97.4 % (92.0-98.5); BG OXYHEMOGLOBIN 96.8 % (94.0-97.0); BG PCO2 32.5 mmHg (35.0-45.0); BG PH 7.441 (7.350-7.450); BG PO2 108.4 mmHg (75.0-100.0); BG SAMPLE SITE ALINE; BG TOTAL HEMOGLOBIN 9.5 g/dL (12.0-18.0); BG VENT MODE VENT - AC
[2023-08-06 11:51] LABS: HEMATOCRIT 26.6 % (42.0-52.0); HEMOGLOBIN 8.8 g/dL (14.0-18.0)
[2023-08-06] MEDS: CEFTRIAXONE 1,000 MG in DEXTROSE 5% WATER 50 ML IV SCH (15:05)
[2023-08-06 17:49] LABS: HEMATOCRIT 28.3 % (42.0-52.0); HEMOGLOBIN 9.3 g/dL (14.0-18.0)
[2023-08-06] MEDS: CYANOCOBALAMIN 1000MCG/ML VIAL IM SCH (22:21)
[2023-08-07] VITALS (99 sets, daily range): BP systolic 101–148; BP diastolic 53–104; PULSE 60–115; RESP 8–23; TEMP 98.6–99.5
[2023-08-07] MEDS: METOCLOPRAMIDE HCL 10MG/2ML VIAL IV SCH ×5 (01:40→23:09)
[2023-08-07] MEDS: BLOOD SUGAR DIAGNOSTIC STRIP TEST SCH ×7 (04:00→23:05)
[2023-08-07] MEDS: PANTOPRAZOLE 80 MG in SODIUM CHLORIDE 0.9% 100 ML IV SCH ×2 (05:26→15:21)
[2023-08-07] MEDS: DEXT 10% WATER 1,000 ML IV SCH (05:26)
[2023-08-07] MEDS: VASOPRESSIN 20 UNIT in SODIUM CHLORIDE 0.9% 99 ML IV PRN (05:27)
[2023-08-07 05:42] LABS: BASOPHILS % 0.1 % (0.0-2.0); EOSINOPHILS % 1.3 % (0.0-5.0); LYMPHOCYTES % 9.2 % (20.0-50.0); MEAN CORPUSCULAR HEMOGLOBIN 30.1 pg (28.0-32.0); MEAN CORPUSCULAR HGB CONC 33.5 g/dL (31.0-37.0); MEAN CORPUSCULAR VOLUME 89.7 fL (80.0-94.0); MEAN PLATELET VOLUME 9.3 fl (7.4-10.4); MONOCYTES % 5.5 % (2.0-8.0); NEUTROPHILS % 83.9 % (40.0-76.0); RED BLOOD CELL COUNT 3.34 mill/uL (4.7-6.1); RED CELL DISTRIBUTION WIDTH 15.1 % (11.6-14.6); WHITE BLOOD COUNT 14.2 x1000/uL (4.5-11.0)
[2023-08-07 06:09] LABS: DIFFERENTIAL COMMENT 1
[2023-08-07 06:12] LABS: PLATELET 42 x1000/uL (130-400)
[2023-08-07 09:28] LABS: HEPATITIS A AB IGM NEGATIVE (Negative); HEPATITIS B CORE AB IGM NEGATIVE (Negative); HEPATITIS B SURFACE ANTIGEN NEGATIVE (Negative); HEPATITIS C AB NON REACTIVE (Neg) (Negative)
[2023-08-07] MEDS ORDERED: FLUMAZENIL 0.1 MG/ML 5ML VIAL IV NR (11:00)
[2023-08-07 12:09] LABS: BASOPHILS % 0.7 % (0.0-2.0); EOSINOPHILS % 1.3 % (0.0-5.0); HEMATOCRIT. 31.5 % (42.0-52.0); HEMOGLOBIN. 10.3 g/dL (14.0-18.0); LYMPHOCYTES % 9.1 % (20.0-50.0); MEAN CORPUSCULAR HEMOGLOBIN 29.7 pg (28.0-32.0); MEAN CORPUSCULAR HGB CONC 32.6 g/dL (31.0-37.0); MEAN PLATELET VOLUME 9.3 fl (7.4-10.4); NEUTROPHILS % 83.9 % (40.0-76.0); PLATELET 51 x1000/uL (130-400); RED BLOOD CELL COUNT 3.46 mill/uL (4.7-6.1); RED CELL DISTRIBUTION WIDTH 15.5 % (11.6-14.6); WHITE BLOOD COUNT 15.8 x1000/uL (4.5-11.0)
[2023-08-07 12:53] LABS: CALCIUM 7.4 mg/dL (8.7-10.4); CREATININE 2.8 mg/dL (0.6-1.3); POTASSIUM 5.1 mEq/L (3.5-5.1)
[2023-08-07] MEDS: DEXTROSE 50% WATER 50ML SYRINGE IV PRN ×2 (12:54→16:29)
[2023-08-07] MEDS: CEFTRIAXONE 1,000 MG in DEXTROSE 5% WATER 50 ML IV SCH (14:28)
[2023-08-08] VITALS (89 sets, daily range): BP systolic 104–157; BP diastolic 56–109; PULSE 78–112; RESP 7–16; TEMP 98.6–99.2
[2023-08-08] MEDS: PANTOPRAZOLE 80 MG in SODIUM CHLORIDE 0.9% 100 ML IV SCH ×2 (00:14→12:39)
[2023-08-08] MEDS: BLOOD SUGAR DIAGNOSTIC STRIP TEST SCH ×6 (04:00→23:45)
[2023-08-08] MEDS: METOCLOPRAMIDE HCL 10MG/2ML VIAL IV SCH ×4 (05:33→23:30)
[2023-08-08 06:00] LABS: HEMATOCRIT. 29.6 % (42.0-52.0); HEMOGLOBIN. 9.9 g/dL (14.0-18.0); MEAN CORPUSCULAR HEMOGLOBIN 30.5 pg (28.0-32.0); MEAN CORPUSCULAR HGB CONC 33.6 g/dL (31.0-37.0); MEAN CORPUSCULAR VOLUME 90.9 fL (80.0-94.0); MEAN PLATELET VOLUME 8.5 fl (7.4-10.4); PLATELET 73 x1000/uL (130-400); RED BLOOD CELL COUNT 3.26 mill/uL (4.7-6.1); RED CELL DISTRIBUTION WIDTH 15.9 % (11.6-14.6); WHITE BLOOD COUNT 13.4 x1000/uL (4.5-11.0)
[2023-08-08 06:18] LABS: AMMONIA < 10 uMol/L (<32)
[2023-08-08 06:57] LABS: ALANINE AMINOTRANSFERASE 117 IU/L (10-49); ALBUMIN 2.5 g/dL (3.2-4.8); ASPARTATE AMINOTRANSFERASE 84 IU/L (<34); BILIRUBIN TOTAL 0.4 mg/dL (0.1-1.0); CALCIUM 7.7 mg/dL (8.7-10.4); CARBON DIOXIDE 25 mEq/L (21-32); CHLORIDE 116 mEq/L (98-107); CREATININE 2.4 mg/dL (0.6-1.3); GLUCOSE 98 mg/dL (70-105); PHOSPHORUS 4.1 mg/dL (2.5-4.9); POTASSIUM 4.2 mEq/L (3.5-5.1); PROTEIN TOTAL 4.3 g/dL (6.0-8.3); SODIUM 147 mEq/L (136-145); UREA NITROGEN BLOOD 25 mg/dL (9-23)
[2023-08-08 07:00] LABS: DIFFERENTIAL COMMENT 1
[2023-08-08 08:32] LABS: BG BASE EXCESS -3.3 mmol/L (-2.0-2.0); BG CARBOXYHEMOGLOBIN 0.3 % (0.5-1.5); BG DEOXYHEMOGLOBIN 1.8 % (0.0-5.0); BG FRACTION INSPIRED OXYGEN 40; BG HCO3 ACT 23.2 mmol/L (22.0-26.0); BG METHEMOGLOBIN 0.3 % (0.0-1.5); BG OXYGEN SATURATION 98.2 % (92.0-98.5); BG OXYHEMOGLOBIN 97.6 % (94.0-97.0); BG PCO2 48.3 mmHg (35.0-45.0); BG PO2 143.8 mmHg (75.0-100.0); BG SAMPLE SITE ALINE; BG TOTAL HEMOGLOBIN 11.1 g/dL (12.0-18.0); BG VENT MODE VENT - SIMV
[2023-08-08] MEDS: DEXT 10% WATER 1,000 ML IV SCH (09:39)
[2023-08-08 11:52] LABS: ANISOCYTOSIS 1+; NUCLEATED RED BLOOD CELLS 1 /100 WBC; PLATELET ESTIMATE SLIGHTLY DECREASED
[2023-08-08] MEDS: CEFTRIAXONE 1,000 MG in DEXTROSE 5% WATER 50 ML IV SCH (14:57)
[2023-08-09] VITALS (102 sets, daily range): BP systolic 83–182; BP diastolic 51–121; PULSE 57–123; RESP 9–26; TEMP 98.3–100.3
[2023-08-09] MEDS: PANTOPRAZOLE 80 MG in SODIUM CHLORIDE 0.9% 100 ML IV SCH ×3 (00:01→16:52)
[2023-08-09 00:13] LABS: THYROID STIMULATING HORMONE 2.47 uIU/mL (0.55-4.78)
[2023-08-09] MEDS ORDERED: HALOPERIDOL LACTATE 5MG/ML VIAL IM NR (00:55)
[2023-08-09] MEDS: ONDANSETRON HCL 4MG/2ML INJ IV PRN (03:00)
[2023-08-09] MEDS ORDERED: MORPHINE SULFATE 4 MG/ML CPJ (NOT FOR IM USE) IV NR (04:00)
[2023-08-09] MEDS: BLOOD SUGAR DIAGNOSTIC STRIP TEST SCH ×5 (04:00→20:30)
[2023-08-09 07:15] LABS: BASOPHILS % 0.1 % (0.0-2.0); EOSINOPHILS % 1.9 % (0.0-5.0); HEMATOCRIT. 29.1 % (42.0-52.0); HEMOGLOBIN. 9.7 g/dL (14.0-18.0); LYMPHOCYTES % 7.5 % (20.0-50.0); MEAN CORPUSCULAR HGB CONC 33.3 g/dL (31.0-37.0); MEAN CORPUSCULAR VOLUME 93.1 fL (80.0-94.0); MEAN PLATELET VOLUME 8.1 fl (7.4-10.4); MONOCYTES % 8.8 % (2.0-8.0); NEUTROPHILS % 81.7 % (40.0-76.0); PLATELET 103 x1000/uL (130-400); RED BLOOD CELL COUNT 3.12 mill/uL (4.7-6.1); RED CELL DISTRIBUTION WIDTH 15.5 % (11.6-14.6); WHITE BLOOD COUNT 10.2 x1000/uL (4.5-11.0)
[2023-08-09] MEDS: METOCLOPRAMIDE HCL 10MG/2ML VIAL IV SCH ×3 (07:20→17:07)
[2023-08-09] MEDS: AMLODIPINE 5MG TABLET PO SCH ×2 (08:05→21:09)
[2023-08-09] MEDS: CLONIDINE 0.1MG TABLET PO PRN ×2 (09:04→15:51)
[2023-08-09] MEDS: METOPROLOL TARTRATE 50MG TABLET PO SCH ×2 (09:37→21:09)
[2023-08-09] MEDS: ENALAPRIL 1.25MG/ML VIAL 1ML IV PRN ×3 (09:37→21:52)
[2023-08-09 09:44] LABS: BG BASE EXCESS -3.1 mmol/L (-2.0-2.0); BG CARBOXYHEMOGLOBIN 0.3 % (0.5-1.5); BG DEOXYHEMOGLOBIN 2.7 % (0.0-5.0); BG FRACTION INSPIRED OXYGEN 40; BG HCO3 ACT 22.3 mmol/L (22.0-26.0); BG METHEMOGLOBIN 0.3 % (0.0-1.5); BG OXYGEN SATURATION 97.3 % (92.0-98.5); BG OXYHEMOGLOBIN 96.7 % (94.0-97.0); BG PCO2 41.5 mmHg (35.0-45.0); BG PH 7.348 (7.350-7.450); BG PO2 101.2 mmHg (75.0-100.0); BG SAMPLE SITE ALINE; BG TOTAL HEMOGLOBIN 10.8 g/dL (12.0-18.0); BG VENT MODE VENT - AC
[2023-08-09 12:57] LABS: ALANINE AMINOTRANSFERASE 76 IU/L (10-49); ALBUMIN 2.6 g/dL (3.2-4.8); ASPARTATE AMINOTRANSFERASE 43 IU/L (<34); BILIRUBIN TOTAL 0.3 mg/dL (0.1-1.0); CALCIUM 8.1 mg/dL (8.7-10.4); CARBON DIOXIDE 25 mEq/L (21-32); CHLORIDE 115 mEq/L (98-107); GLUCOSE 99 mg/dL (70-105); PHOSPHORUS 3.3 mg/dL (2.5-4.9); POTASSIUM 4.1 mEq/L (3.5-5.1); PROTEIN TOTAL 4.5 g/dL (6.0-8.3); SODIUM 147 mEq/L (136-145); UREA NITROGEN BLOOD 15 mg/dL (9-23)
[2023-08-09] MEDS: CEFTRIAXONE 1,000 MG in DEXTROSE 5% WATER 50 ML IV SCH (14:01)
[2023-08-09] MEDS: ACETAMINOPHEN 325MG TABLET PO PRN (17:23)
[2023-08-09] MEDS ORDERED: NALOXONE HCL 0.4MG/ML VIAL IV PRN (22:30)
[2023-08-09] MEDS: MORPHINE SULFATE 2 MG/ML CPJ (NOT FOR IM USE) IV PRN (22:40)
[2023-08-09] MEDS: LORAZEPAM 1MG TABLET PO PRN (23:45)
[2023-08-10] VITALS (94 sets, daily range): BP systolic 92–193; BP diastolic 52–139; PULSE 60–128; RESP 7–26; TEMP 98–100.3
[2023-08-10] MEDS: CLONIDINE 0.1MG TABLET PO PRN (00:14)
[2023-08-10] MEDS: BLOOD SUGAR DIAGNOSTIC STRIP TEST SCH ×6 (00:15→20:00)
[2023-08-10] MEDS: METOCLOPRAMIDE HCL 10MG/2ML VIAL IV SCH ×4 (00:15→17:00)
[2023-08-10] MEDS: DEXT 10% WATER 1,000 ML IV SCH (01:00)
[2023-08-10] MEDS: MORPHINE SULFATE 2 MG/ML CPJ (NOT FOR IM USE) IV PRN (04:08)
[2023-08-10 05:50] LABS: HEMATOCRIT. 30.1 % (42.0-52.0); MEAN CORPUSCULAR HGB CONC 33.4 g/dL (31.0-37.0); MEAN CORPUSCULAR VOLUME 92.8 fL (80.0-94.0); PLATELET 153 x1000/uL (130-400); RED BLOOD CELL COUNT 3.24 mill/uL (4.7-6.1); RED CELL DISTRIBUTION WIDTH 15.5 % (11.6-14.6); WHITE BLOOD COUNT 10.5 x1000/uL (4.5-11.0)
[2023-08-10] MEDS: PANTOPRAZOLE 80 MG in SODIUM CHLORIDE 0.9% 100 ML IV SCH ×2 (06:08→12:02)
[2023-08-10 06:28] LABS: CALCIUM 8.8 mg/dL (8.7-10.4); CARBON DIOXIDE 24 mEq/L (21-32); CHLORIDE 112 mEq/L (98-107); CREATININE 1.8 mg/dL (0.6-1.3); GLUCOSE 96 mg/dL (70-105); PHOSPHORUS 2.4 mg/dL (2.5-4.9); POTASSIUM 3.9 mEq/L (3.5-5.1); SODIUM 145 mEq/L (136-145); UREA NITROGEN BLOOD 12 mg/dL (9-23)
[2023-08-10 06:37] LABS: DIFFERENTIAL COMMENT 1
[2023-08-10 08:24] LABS: BG BASE EXCESS -1.4 mmol/L (-2.0-2.0); BG CARBOXYHEMOGLOBIN 0.3 % (0.5-1.5); BG DEOXYHEMOGLOBIN 3.9 % (0.0-5.0); BG FRACTION INSPIRED OXYGEN 40; BG HCO3 ACT 23.3 mmol/L (22.0-26.0); BG METHEMOGLOBIN 0.2 % (0.0-1.5); BG OXYGEN SATURATION 96.1 % (92.0-98.5); BG OXYHEMOGLOBIN 95.6 % (94.0-97.0); BG PCO2 39.3 mmHg (35.0-45.0); BG PH 7.391 (7.350-7.450); BG PO2 79.2 mmHg (75.0-100.0); BG SAMPLE SITE RIGHT RADIAL; BG TOTAL HEMOGLOBIN 10.6 g/dL (12.0-18.0); BG VENT MODE VENT - SIMV
[2023-08-10] MEDS: ACETAMINOPHEN 325MG TABLET PO PRN (08:33)
[2023-08-10] MEDS: AMLODIPINE 5MG TABLET PO SCH ×2 (08:34→21:37)
[2023-08-10] MEDS: METOPROLOL TARTRATE 50MG TABLET PO SCH ×2 (08:34→21:37)
[2023-08-10] MEDS: LORAZEPAM 1MG TABLET PO PRN ×2 (09:33→21:45)
[2023-08-10 10:43] LABS: ANISOCYTOSIS 1+; PLATELET ESTIMATE NORMAL
[2023-08-10] MEDS ORDERED: POTASSIUM-SODIUM PHOSPHATE POWDER PACKET PO NR (11:30)
[2023-08-10] MEDS: POTASSIUM-SODIUM PHOSPHATE POWDER PACKET PO SCH ×2 (12:01→16:59)
[2023-08-10 12:43] LABS: BG BASE EXCESS -1.8 mmol/L (-2.0-2.0); BG CARBOXYHEMOGLOBIN 0.3 % (0.5-1.5); BG DEOXYHEMOGLOBIN 1.5 % (0.0-5.0); BG FRACTION INSPIRED OXYGEN 40; BG HCO3 ACT 22.3 mmol/L (22.0-26.0); BG METHEMOGLOBIN 0.3 % (0.0-1.5); BG OXYGEN SATURATION 98.5 % (92.0-98.5); BG OXYHEMOGLOBIN 97.9 % (94.0-97.0); BG PCO2 35.8 mmHg (35.0-45.0); BG PH 7.413 (7.350-7.450); BG PO2 125.8 mmHg (75.0-100.0); BG SAMPLE SITE ALINE; BG TOTAL HEMOGLOBIN 11.4 g/dL (12.0-18.0); BG VENT MODE VENT - CPAP
[2023-08-10] MEDS: CEFTRIAXONE 1,000 MG in DEXTROSE 5% WATER 50 ML IV SCH (15:01)
[2023-08-10] MEDS: ENALAPRIL 1.25MG/ML VIAL 1ML IV PRN (16:46)
[2023-08-11] VITALS (41 sets, daily range): BP systolic 111–165; BP diastolic 61–110; PULSE 64–125; RESP 10–25; TEMP 97.9–98.6
[2023-08-11] MEDS: PANTOPRAZOLE 80 MG in SODIUM CHLORIDE 0.9% 100 ML IV SCH ×3 (00:56→21:48)
[2023-08-11] MEDS: BLOOD SUGAR DIAGNOSTIC STRIP TEST SCH ×6 (00:56→21:05)
[2023-08-11] MEDS: METOCLOPRAMIDE HCL 10MG/2ML VIAL IV SCH ×4 (00:56→17:22)
[2023-08-11 05:50] LABS: HEMATOCRIT. 31.5 % (42.0-52.0); HEMOGLOBIN. 10.6 g/dL (14.0-18.0); MEAN CORPUSCULAR HEMOGLOBIN 30.4 pg (28.0-32.0); MEAN CORPUSCULAR HGB CONC 33.5 g/dL (31.0-37.0); MEAN CORPUSCULAR VOLUME 90.9 fL (80.0-94.0); MEAN PLATELET VOLUME 8.1 fl (7.4-10.4); PLATELET 235 x1000/uL (130-400); RED BLOOD CELL COUNT 3.47 mill/uL (4.7-6.1); RED CELL DISTRIBUTION WIDTH 14.7 % (11.6-14.6); WHITE BLOOD COUNT 12.9 x1000/uL (4.5-11.0)
[2023-08-11] MEDS: MORPHINE SULFATE 2 MG/ML CPJ (NOT FOR IM USE) IV PRN (05:57)
[2023-08-11 06:12] LABS: ALANINE AMINOTRANSFERASE 45 IU/L (10-49); ALBUMIN 3.1 g/dL (3.2-4.8); ASPARTATE AMINOTRANSFERASE 31 IU/L (<34); BILIRUBIN TOTAL 0.4 mg/dL (0.1-1.0); CARBON DIOXIDE 27 mEq/L (21-32); CHLORIDE 109 mEq/L (98-107); CREATININE 1.6 mg/dL (0.6-1.3); GLUCOSE 97 mg/dL (70-105); PHOSPHORUS 2.9 mg/dL (2.5-4.9); POTASSIUM 3.4 mEq/L (3.5-5.1); PROTEIN TOTAL 5.7 g/dL (6.0-8.3); SODIUM 143 mEq/L (136-145); UREA NITROGEN BLOOD 10 mg/dL (9-23)
[2023-08-11 06:22] LABS: DIFFERENTIAL COMMENT 1
[2023-08-11] MEDS ORDERED: POTASSIUM CHLORIDE 20MEQ TABLET SR PO SCH ×2 (08:30→16:00)
[2023-08-11 09:36] LABS: PLATELET ESTIMATE NORMAL
[2023-08-11] MEDS: POTASSIUM-SODIUM PHOSPHATE POWDER PACKET PO SCH (09:38)
[2023-08-11] MEDS: METOPROLOL TARTRATE 50MG TABLET PO SCH ×2 (09:39→22:38)
[2023-08-11] MEDS: AMLODIPINE 5MG TABLET PO SCH ×2 (09:39→22:39)
[2023-08-11] MEDS: CEFTRIAXONE 1,000 MG in DEXTROSE 5% WATER 50 ML IV SCH (17:27)
[2023-08-12] MEDS: METOCLOPRAMIDE HCL 10MG/2ML VIAL IV SCH ×4 (00:30→18:11)
[2023-08-12] MEDS: BLOOD SUGAR DIAGNOSTIC STRIP TEST SCH ×6 (04:00→20:58)
[2023-08-12 04:13] LABS: BASOPHILS % 0.5 % (0.0-2.0); EOSINOPHILS % 3.6 % (0.0-5.0); HEMATOCRIT. 31.9 % (42.0-52.0); HEMOGLOBIN. 10.5 g/dL (14.0-18.0); LYMPHOCYTES % 10.5 % (20.0-50.0); MEAN CORPUSCULAR HEMOGLOBIN 30.1 pg (28.0-32.0); MEAN CORPUSCULAR HGB CONC 32.9 g/dL (31.0-37.0); MEAN CORPUSCULAR VOLUME 91.8 fL (80.0-94.0); MEAN PLATELET VOLUME 8.1 fl (7.4-10.4); MONOCYTES % 9.9 % (2.0-8.0); NEUTROPHILS % 75.5 % (40.0-76.0); PLATELET 317 x1000/uL (130-400); RED BLOOD CELL COUNT 3.48 mill/uL (4.7-6.1); RED CELL DISTRIBUTION WIDTH 15.1 % (11.6-14.6); WHITE BLOOD COUNT 9.5 x1000/uL (4.5-11.0)
[2023-08-12 04:25] VITALS: BP 106/64; PULSE 64; RESP 17; TEMP 98.5
[2023-08-12 04:26] LABS: CALCIUM 8.9 mg/dL (8.7-10.4); CARBON DIOXIDE 26 mEq/L (21-32); CHLORIDE 110 mEq/L (98-107); CREATININE 1.8 mg/dL (0.6-1.3); GLUCOSE 77 mg/dL (70-105); PHOSPHORUS 3.9 mg/dL (2.5-4.9); POTASSIUM 3.5 mEq/L (3.5-5.1); SODIUM 145 mEq/L (136-145); UREA NITROGEN BLOOD 15 mg/dL (9-23)
[2023-08-12 05:26] LABS: PROTHROMBIN TIME 10.5 sec (9.6-11.0)
[2023-08-12 06:00] VITALS: BP 117/68; PULSE 66; RESP 18; TEMP 98.6
[2023-08-12 08:00] VITALS: BP 137/78; PULSE 65; RESP 10; TEMP 98.1
[2023-08-12] MEDS: POTASSIUM-SODIUM PHOSPHATE POWDER PACKET PO SCH (09:00)
[2023-08-12] MEDS: AMLODIPINE 5MG TABLET PO SCH ×2 (09:00→21:24)
[2023-08-12] MEDS: METOPROLOL TARTRATE 50MG TABLET PO SCH ×2 (09:00→21:23)
[2023-08-12] MEDS ORDERED: KCL 20MEQ/100ML PREMIX 100 ML IV NR (09:15)
[2023-08-12] MEDS: DEXT 5%/0.2% NACL 1,000 ML IV SCH (11:40)
[2023-08-12 12:00] VITALS: BP 136/79; PULSE 86; RESP 12; TEMP 98
[2023-08-12] MEDS: PANTOPRAZOLE 80 MG in SODIUM CHLORIDE 0.9% 100 ML IV SCH (14:27)
[2023-08-12 16:00] VITALS: BP 139/78; PULSE 97; RESP 12; TEMP 98.3
[2023-08-12 19:20] VITALS: BP 138/71; PULSE 79; RESP 18; TEMP 98
[2023-08-13] VITALS (7 sets, daily range): BP systolic 126–145; BP diastolic 63–82; PULSE 60–81; RESP 13–18; TEMP 97.8–100
[2023-08-13] MEDS: METOCLOPRAMIDE HCL 10MG/2ML VIAL IV SCH ×5 (00:42→23:40)
[2023-08-13] MEDS: PANTOPRAZOLE 80 MG in SODIUM CHLORIDE 0.9% 100 ML IV SCH ×3 (00:42→20:49)
[2023-08-13] MEDS: BLOOD SUGAR DIAGNOSTIC STRIP TEST SCH ×6 (00:42→20:00)
[2023-08-13 03:00] LABS: BASOPHILS % 1.3 % (0.0-2.0); EOSINOPHILS % 4.6 % (0.0-5.0); HEMATOCRIT. 33.1 % (42.0-52.0); HEMOGLOBIN. 11.1 g/dL (14.0-18.0); MEAN CORPUSCULAR HEMOGLOBIN 30.2 pg (28.0-32.0); MEAN CORPUSCULAR HGB CONC 33.6 g/dL (31.0-37.0); MEAN CORPUSCULAR VOLUME 89.9 fL (80.0-94.0); MEAN PLATELET VOLUME 7.7 fl (7.4-10.4); NEUTROPHILS % 70.1 % (40.0-76.0); PLATELET 402 x1000/uL (130-400); RED BLOOD CELL COUNT 3.69 mill/uL (4.7-6.1); RED CELL DISTRIBUTION WIDTH 15.5 % (11.6-14.6); WHITE BLOOD COUNT 8.4 x1000/uL (4.5-11.0)
[2023-08-13 03:11] LABS: PROTHROMBIN TIME 10.9 sec (9.6-11.0)
[2023-08-13 03:27] LABS: ALANINE AMINOTRANSFERASE 30 IU/L (10-49); ALBUMIN 3.5 g/dL (3.2-4.8); ASPARTATE AMINOTRANSFERASE 25 IU/L (<34); BILIRUBIN TOTAL 0.5 mg/dL (0.1-1.0); CALCIUM 8.9 mg/dL (8.7-10.4); CARBON DIOXIDE 26 mEq/L (21-32); CHLORIDE 110 mEq/L (98-107); CREATININE 1.6 mg/dL (0.6-1.3); GLUCOSE 93 mg/dL (70-105); POTASSIUM 3.7 mEq/L (3.5-5.1); PROTEIN TOTAL 6.5 g/dL (6.0-8.3); SODIUM 144 mEq/L (136-145); UREA NITROGEN BLOOD 15 mg/dL (9-23)
[2023-08-13] MEDS: METOPROLOL TARTRATE 50MG TABLET PO SCH ×2 (08:52→20:50)
[2023-08-13] MEDS: AMLODIPINE 5MG TABLET PO SCH ×2 (08:53→20:50)
[2023-08-13] MEDS: POTASSIUM-SODIUM PHOSPHATE POWDER PACKET PO SCH (08:53)
[2023-08-13] MEDS: DEXT 5%/0.2% NACL 1,000 ML IV SCH ×2 (11:25→17:58)
[2023-08-13] MEDS ORDERED: VANCOMYCIN 2,000 MG in DEXT 5% WATER 500 ML IV SCH (13:00)
[2023-08-14] VITALS: BP 124/70; PULSE 63; RESP 14; TEMP 99
[2023-08-14] MEDS: DEXT 5%/0.2% NACL 1,000 ML IV SCH ×2 (00:45→13:01)
[2023-08-14 04:00] VITALS: BP 120/66; PULSE 60; RESP 14; TEMP 98.8
[2023-08-14] MEDS: BLOOD SUGAR DIAGNOSTIC STRIP TEST SCH ×6 (04:00→20:00)
[2023-08-14 06:38] LABS: BASOPHILS % 1.8 % (0.0-2.0); EOSINOPHILS % 4.6 % (0.0-5.0); HEMOGLOBIN. 10.7 g/dL (14.0-18.0); LYMPHOCYTES % 13.7 % (20.0-50.0); MEAN CORPUSCULAR HEMOGLOBIN 30.8 pg (28.0-32.0); MEAN CORPUSCULAR HGB CONC 33.3 g/dL (31.0-37.0); MEAN CORPUSCULAR VOLUME 92.4 fL (80.0-94.0); MEAN PLATELET VOLUME 7.9 fl (7.4-10.4); MONOCYTES % 11.7 % (2.0-8.0); NEUTROPHILS % 68.2 % (40.0-76.0); PLATELET 436 x1000/uL (130-400); RED BLOOD CELL COUNT 3.46 mill/uL (4.7-6.1); RED CELL DISTRIBUTION WIDTH 14.9 % (11.6-14.6); WHITE BLOOD COUNT 6.8 x1000/uL (4.5-11.0)
[2023-08-14] MEDS: PANTOPRAZOLE 80 MG in SODIUM CHLORIDE 0.9% 100 ML IV SCH ×2 (06:53→17:33)
[2023-08-14] MEDS: METOCLOPRAMIDE HCL 10MG/2ML VIAL IV SCH ×3 (06:53→17:33)
[2023-08-14 08:00] VITALS: BP 136/89; PULSE 74; RESP 16; TEMP 98.7
[2023-08-14] MEDS: AMLODIPINE 5MG TABLET PO SCH ×2 (08:46→20:55)
[2023-08-14] MEDS: METOPROLOL TARTRATE 50MG TABLET PO SCH ×2 (08:46→20:54)
[2023-08-14] MEDS: POTASSIUM-SODIUM PHOSPHATE POWDER PACKET PO SCH (08:46)
[2023-08-14 11:19] LABS: ALANINE AMINOTRANSFERASE 23 IU/L (10-49); ALBUMIN 3.2 g/dL (3.2-4.8); ASPARTATE AMINOTRANSFERASE 25 IU/L (<34); BILIRUBIN TOTAL 0.3 mg/dL (0.1-1.0); CALCIUM 8.4 mg/dL (8.7-10.4); CARBON DIOXIDE 20 mEq/L (21-32); CHLORIDE 107 mEq/L (98-107); CREATININE 1.4 mg/dL (0.6-1.3); GLUCOSE 76 mg/dL (70-105); PHOSPHORUS 2.6 mg/dL (2.5-4.9); POTASSIUM 3.5 mEq/L (3.5-5.1); PROTEIN TOTAL 6.2 g/dL (6.0-8.3); SODIUM 138 mEq/L (136-145); UREA NITROGEN BLOOD 9 mg/dL (9-23)
[2023-08-14 12:00] VITALS: BP 138/77; PULSE 75; RESP 18; TEMP 98.4
[2023-08-14] MEDS: VANCOMYCIN 1.25GM PMX (XELLIA) 250 ML IV SCH (13:00)
[2023-08-14 16:00] VITALS: BP 121/71; PULSE 71; RESP 17; TEMP 98.5
[2023-08-14 20:00] VITALS: BP 128/73; PULSE 63; RESP 14; TEMP 98.8
[2023-08-15] VITALS (14 sets, daily range): BP systolic 124–156; BP diastolic 61–83; PULSE 57–83; RESP 10–17; TEMP 98.1–98.8
[2023-08-15] MEDS: METOCLOPRAMIDE HCL 10MG/2ML VIAL IV SCH ×4 (00:34→17:15)
[2023-08-15] MEDS: BLOOD SUGAR DIAGNOSTIC STRIP TEST SCH ×6 (04:00→20:00)
[2023-08-15] MEDS: PANTOPRAZOLE 80 MG in SODIUM CHLORIDE 0.9% 100 ML IV SCH ×3 (04:08→22:58)
[2023-08-15] MEDS: DEXT 5%/0.2% NACL 1,000 ML IV SCH ×2 (04:08→22:34)
[2023-08-15 06:49] LABS: BASOPHILS % 2.6 % (0.0-2.0); EOSINOPHILS % 5.4 % (0.0-5.0); HEMATOCRIT. 31.6 % (42.0-52.0); HEMOGLOBIN. 10.7 g/dL (14.0-18.0); MEAN CORPUSCULAR HEMOGLOBIN 30.4 pg (28.0-32.0); MEAN CORPUSCULAR HGB CONC 33.9 g/dL (31.0-37.0); MEAN CORPUSCULAR VOLUME 89.7 fL (80.0-94.0); MONOCYTES % 14.5 % (2.0-8.0); NEUTROPHILS % 58.5 % (40.0-76.0); PLATELET 480 x1000/uL (130-400); RED BLOOD CELL COUNT 3.53 mill/uL (4.7-6.1); RED CELL DISTRIBUTION WIDTH 15.1 % (11.6-14.6); WHITE BLOOD COUNT 6.2 x1000/uL (4.5-11.0)
[2023-08-15 06:58] LABS: PARTIAL THROMBOPLASTIN TIME 28.6 sec (23.4-31.0); PROTHROMBIN TIME 10.9 sec (9.6-11.0)
[2023-08-15] MEDS: POTASSIUM-SODIUM PHOSPHATE POWDER PACKET PO SCH (09:00)
[2023-08-15] MEDS: METOPROLOL TARTRATE 50MG TABLET PO SCH ×2 (09:00→20:17)
[2023-08-15] MEDS ORDERED: LIDOCAINE HCL 1% 10 MG/ML 10ML VIAL ONE (10:30)
[2023-08-15] MEDS ORDERED: IOHEXOL-300 100 ML BOTTLE ONE (10:31)
[2023-08-15] MEDS ORDERED: FENTANYL CITRATE/PF 50MCG/ML 2ML VIAL ONE (10:38)
[2023-08-15] MEDS ORDERED: FENTANYL CITRATE/PF 50MCG/ML 2ML VIAL IV ONE (12:00)
[2023-08-15] MEDS: VANCOMYCIN 1.25GM PMX (XELLIA) 250 ML IV SCH (13:17)
[2023-08-15 13:21] LABS: ALANINE AMINOTRANSFERASE 19 IU/L (10-49); ALBUMIN 3.1 g/dL (3.2-4.8); ASPARTATE AMINOTRANSFERASE 23 IU/L (<34); BILIRUBIN TOTAL 0.4 mg/dL (0.1-1.0); CALCIUM 8.2 mg/dL (8.7-10.4); CARBON DIOXIDE 19 mEq/L (21-32); CHLORIDE 108 mEq/L (98-107); CREATININE 1.6 mg/dL (0.6-1.3); GLUCOSE 70 mg/dL (70-105); PHOSPHORUS 3.1 mg/dL (2.5-4.9); POTASSIUM 3.4 mEq/L (3.5-5.1); PROTEIN TOTAL 6.7 g/dL (6.0-8.3); SODIUM 140 mEq/L (136-145); UREA NITROGEN BLOOD 10 mg/dL (9-23)
[2023-08-15] MEDS: CYANOCOBALAMIN 1000MCG TABLET PO SCH (17:15)
[2023-08-15] MEDS: AMLODIPINE 10MG TABLET PO SCH (20:17)
[2023-08-16] VITALS: BP 124/73; PULSE 64; RESP 15; TEMP 98.4
[2023-08-16] MEDS: METOCLOPRAMIDE HCL 10MG/2ML VIAL IV SCH ×2 (00:38→06:51)
[2023-08-16 04:00] VITALS: PULSE 61; RESP 13
[2023-08-16] MEDS: BLOOD SUGAR DIAGNOSTIC STRIP TEST SCH ×2 (04:00)
[2023-08-16 08:00] VITALS: BP 119/70; PULSE 74; RESP 16; TEMP 98.4
[2023-08-16] MEDS: CYANOCOBALAMIN 1000MCG TABLET PO SCH (09:01)
[2023-08-16] MEDS: AMLODIPINE 10MG TABLET PO SCH (09:01)
[2023-08-16] MEDS: METOPROLOL TARTRATE 50MG TABLET PO SCH (09:01)
[2023-08-16] MEDS: POTASSIUM-SODIUM PHOSPHATE POWDER PACKET PO SCH (09:01)
[2023-08-16 09:06] VITALS: BP 119/70; PULSE 74; TEMP 98.4; O2SAT 98
[2023-08-16] MEDS ORDERED: POTASSIUM CHLORIDE 20MEQ TABLET SR PO NR (12:00)
[2023-08-16] MEDS ORDERED: MAGNESIUM OXIDE 400MG TABLET PO NR (12:00)
[2023-08-16] MEDS ORDERED: VANCOMYCIN 1G PREMIX 200 ML IV SCH (13:00)
== END 2023-08-16 09:30 | disposition home or self-care (01) | DRG 853 ==
LOC: ER 18:40 → MICUSO 22:08 → CVICU 22:13 → 3WST 08-11 18:55
PROVIDERS: ADMIT Internal Medicine; ATTEND Internal Medicine
PROC: 30233R1 Transfusion of Nonautologous Platelets into Peripheral Vein, Percutaneous Approach (ICD-10-PCS; 2023-08-02)
PROC: B54BZZA Ultrasonography of Right Lower Extremity Veins, Guidance (ICD-10-PCS; 2023-08-03)
PROC: 06HY33Z Insertion of Infusion Device into Lower Vein, Percutaneous Approach (ICD-10-PCS; 2023-08-03)
PROC: 4A133B1 Monitoring of Arterial Pressure, Peripheral, Percutaneous Approach (ICD-10-PCS; 2023-08-03)
PROC: 30233K1 Transfusion of Nonautologous Frozen Plasma into Peripheral Vein, Percutaneous Approach (ICD-10-PCS; 2023-08-03)
PROC: 5A1955Z Respiratory Ventilation, Greater than 96 Consecutive Hours (ICD-10-PCS; principal; 2023-08-04)
PROC: 0DJ08ZZ Inspection of Upper Intestinal Tract, Via Natural or Artificial Opening Endoscopic (ICD-10-PCS; 2023-08-04)
PROC: 04V33DZ Restriction of Hepatic Artery with Intraluminal Device, Percutaneous Approach (ICD-10-PCS; 2023-08-05)
PROC: B4101ZZ Fluoroscopy of Abdominal Aorta using Low Osmolar Contrast (ICD-10-PCS; 2023-08-05)
PROC: B4141ZZ Fluoroscopy of Superior Mesenteric Artery using Low Osmolar Contrast (ICD-10-PCS; 2023-08-05)
PROC: 02HV33Z Insertion of Infusion Device into Superior Vena Cava, Percutaneous Approach (ICD-10-PCS; 2023-08-05)
PROC: B548ZZA Ultrasonography of Superior Vena Cava, Guidance (ICD-10-PCS; 2023-08-05)
PROC: B518ZZA Fluoroscopy of Superior Vena Cava, Guidance (ICD-10-PCS; 2023-08-05)
PROC: 30233N1 Transfusion of Nonautologous Red Blood Cells into Peripheral Vein, Percutaneous Approach (ICD-10-PCS; 2023-08-05)
PROC: 4A00X4Z Measurement of Central Nervous Electrical Activity, External Approach (ICD-10-PCS; 2023-08-07)
PROC: 0DJ68ZZ Inspection of Stomach, Via Natural or Artificial Opening Endoscopic (ICD-10-PCS; 2023-08-07)
PROC: 06H03DZ Insertion of Intraluminal Device into Inferior Vena Cava, Percutaneous Approach (ICD-10-PCS; 2023-08-15)
PROC: B549ZZA Ultrasonography of Inferior Vena Cava, Guidance (ICD-10-PCS; 2023-08-15)
PROC: B519ZZA Fluoroscopy of Inferior Vena Cava, Guidance (ICD-10-PCS; 2023-08-15)
DX: A41.9 Sepsis, unspecified organism (principal); E43 Unspecified severe protein-calorie malnutrition; R57.8 Other shock; J96.00 Acute respiratory failure, unspecified whether with hypoxia or hypercapnia; J15.212 Pneumonia due to Methicillin resistant Staphylococcus aureus; I63.9 Cerebral infarction, unspecified; K92.2 Gastrointestinal hemorrhage, unspecified; N17.9 Acute kidney failure, unspecified; E87.20 Acidosis, unspecified; A07.1 Giardiasis [lambliasis]; I82.411 Acute embolism and thrombosis of right femoral vein; G93.40 Encephalopathy, unspecified; I12.9 Hypertensive chronic kidney disease with stage 1 through stage 4 chronic kidney disease, or unspecified chronic kidney disease; I48.91 Unspecified atrial fibrillation; Z96.642 Presence of left artificial hip joint; D69.6 Thrombocytopenia, unspecified; E53.8 Deficiency of other specified B group vitamins; D50.0 Iron deficiency anemia secondary to blood loss (chronic); F10.10 Alcohol abuse, uncomplicated; Y90.9 Presence of alcohol in blood, level not specified; E78.5 Hyperlipidemia, unspecified; E83.42 Hypomagnesemia; E83.51 Hypocalcemia; K52.9 Noninfective gastroenteritis and colitis, unspecified; R74.01 Elevation of levels of liver transaminase levels; N18.30 Chronic kidney disease, stage 3 unspecified; Z87.19 Personal history of other diseases of the digestive system; Z88.8 Allergy status to other drugs, medicaments and biological substances; Z79.899 Other long term (current) drug therapy; Z88.3 Allergy status to other anti-infective agents; Z68.26 Body mass index [BMI] 26.0-26.9, adult; Z82.49 Family history of ischemic heart disease and other diseases of the circulatory system; Z95.828 Presence of other vascular implants and grafts
CPT/HCPCS: 31500; 36415; 36556; 36600; 37191; 70551; 71045; 71250; 75625; 75726; 75774; 75898; 76705; 76937; 80048; 80053; 80061; 80076; 80202; 80305; 81003; 82140; 82375; 82607; 82728; 82746; 82805; 82962; 83540; 83550; 83735; 84100; 84145; 84443; 85014; 85018; 85025; 85044; 85049; 85362; 85384; 86705; 86709; 86850; 86900; 86920; 86927; 87070; 87077; 87186; 87340; 90935; 92610; 93005; 93306; 93308; 93880; 93970; 94002; 94003; 94640; 97116; 97162; 97166; 99285; A6261; C1725; C1752; C1757; C1760; C1766; C1769; C1880; C1887; C9113; J0696; J1630; J1644; J1815; J2250; J2270; J2370; J2405; J2543; J2597; J2765; J3010; J3370; J3420; J3475; J3480; J3490; J7030; J7050; J7060; J7608; P9016; P9017; P9034; Q9967; A4315

== ENCOUNTER → 2023-12-02 | Outpatient (CLI) | payer MEDICARE, BC | END | disposition home or self-care (01) | LOC: RAD 10:39 | PROVIDERS: ATTEND Internal Medicine Critical Care Medicine | DX: R05.9 Cough, unspecified (principal) | CPT/HCPCS: 71045 ==

== ENCOUNTER → 2024-11-05 | Outpatient (CLI) | payer MEDICARE, BC | END | disposition home or self-care (01) | LOC: RAD 07:27 | PROVIDERS: ATTEND Internal Medicine Critical Care Medicine | DX: M25.512 Pain in left shoulder (principal) | CPT/HCPCS: 73030 ==

== ENCOUNTER → 2024-12-16 | Outpatient (CLI) | payer MEDICARE, BC | END | disposition home or self-care (01) | LOC: RAD 12:17 | PROVIDERS: ATTEND Internal Medicine Critical Care Medicine | DX: R06.02 Shortness of breath (principal) | CPT/HCPCS: 71046 ==

== ENCOUNTER → 2025-01-28 | Outpatient (CLI) | payer MEDICARE, BC ==
[2025-01-28 06:48] LABS: CHLORIDE 110 mEq/L (98-107); POTASSIUM 4.3 mEq/L (3.5-5.1); SODIUM 140 mEq/L (136-145)
[2025-01-28 06:49] LABS: CALCIUM 8.8 mg/dL (8.7-10.4); CARBON DIOXIDE 20 mEq/L (21-32)
[2025-01-28 06:54] LABS: CREATININE 1.7 mg/dL (0.6-1.3); GLUCOSE 93 mg/dL (70-105); UREA NITROGEN BLOOD 23 mg/dL (9-23)
[2025-01-28 06:56] LABS: ALANINE AMINOTRANSFERASE 15 IU/L (10-49); ALBUMIN 4.4 g/dL (3.2-4.8); ASPARTATE AMINOTRANSFERASE 20 IU/L (<34); BILIRUBIN TOTAL 0.4 mg/dL (0.1-1.0); PROTEIN TOTAL 7.3 g/dL (6.0-8.3)
== END | disposition home or self-care (01) ==
LOC: LAB 06:12
PROVIDERS: ATTEND Internal Medicine Critical Care Medicine
DX: Z12.5 Encounter for screening for malignant neoplasm of prostate (principal); I12.9 Hypertensive chronic kidney disease with stage 1 through stage 4 chronic kidney disease, or unspecified chronic kidney disease; E11.22 Type 2 diabetes mellitus with diabetic chronic kidney disease; N18.30 Chronic kidney disease, stage 3 unspecified; Z79.899 Other long term (current) drug therapy
CPT/HCPCS: 36415; 80053; 83036; 84153

== ENCOUNTER → 2025-07-28 | Outpatient (CLI) | payer MEDICARE, BC | END | disposition home or self-care (01) | LOC: MRI 07:05 | PROVIDERS: ATTEND Internal Medicine Critical Care Medicine | DX: M50.33 Other cervical disc degeneration, cervicothoracic region (principal); M43.13 Spondylolisthesis, cervicothoracic region; I67.82 Cerebral ischemia; M50.31 Other cervical disc degeneration, high cervical region; M50.321 Other cervical disc degeneration at C4-C5 level; M50.322 Other cervical disc degeneration at C5-C6 level; M50.323 Other cervical disc degeneration at C6-C7 level; M48.02 Spinal stenosis, cervical region | CPT/HCPCS: 70551; 72141 ==

== ENCOUNTER → 2025-08-11 | Outpatient (CLI) | payer MEDICARE, BC | END | disposition home or self-care (01) | LOC: CARD 06:11 | PROVIDERS: ATTEND Internal Medicine Critical Care Medicine | DX: I08.0 Rheumatic disorders of both mitral and aortic valves (principal); I51.7 Cardiomegaly; I50.20 Unspecified systolic (congestive) heart failure; R39.198 Other difficulties with micturition | CPT/HCPCS: 93306 ==